=== PATIENT | male | born 1955 | race Caucasian/White ===

== ENCOUNTER → 2016-05-13 | Outpatient (CLI) | payer BC ==
[~2016-05-13] MED LIST: CLOP1TAB15 PO; LISI-729 PO; METO25TA3 PO
[2016-05-13 11:12] LABS: ALT/SGPT 28 U/L (12-78); AST/SGOT 13 U/L (15-37); BLOOD UREA NITROGEN 18 mg/dl (7-18); BUN/CREATININE RATIO 18.8 (10-20); CALCIUM 8.8 mg/dl (8.5-10.1); CARBON DIOXIDE 29 mmol/L (21-32); CHLORIDE 108 mmol/L (98-107); CREATININE 0.93 mg/dl (0.60-1.40); GLUCOSE 110 mg/dl (70-99); SODIUM 143 mmol/L (136-145)
[2016-05-13 11:14] LABS: ALB/GLOB RATIO 1.2 (0.9-2); ALKALINE PHOSPHATASE 89 U/L (45-117); CHOLESTEROL 110 mg/dl (0-200); CHOLESTEROL/HDL RATIO 2.6; HDL CHOLESTEROL 42 mg/dl; LDL CHOLESTEROL CALCULATED 41 mg/dl; TRIGLYCERIDES 136 mg/dl (0-150); VERY LOW DENSITY LIPOPROT CALC 27 mg/dl
[2016-05-13 11:18] LABS: ESTIMATED AVERAGE GLUCOSE 140 mg/dl; HA1C FLAG Normal (Normal)
== END | disposition home or self-care (01) ==
LOC: C.LABBC 08:40
PROVIDERS: ATTEND Internal Medicine
DX: E78.00 Pure hypercholesterolemia, unspecified (principal); E11.9 Type 2 diabetes mellitus without complications; M46.1 Sacroiliitis, not elsewhere classified

== ENCOUNTER → 2016-11-16 | Outpatient (CLI) | payer BC ==
[2016-11-16 11:26] LABS: ALT/SGPT 22 U/L (12-78); AST/SGOT 15 U/L (15-37); BLOOD UREA NITROGEN 13 mg/dl (7-18); BUN/CREATININE RATIO 15.1 (10-20); CALCIUM 8.7 mg/dl (8.5-10.1); CARBON DIOXIDE 26 mmol/L (21-32); CHLORIDE 110 mmol/L (98-107); CREATININE 0.83 mg/dl (0.60-1.40); GLUCOSE 114 mg/dl (70-99); POTASSIUM 4.2 mmol/L (3.5-5.1); SODIUM 141 mmol/L (136-145)
[2016-11-16 11:29] LABS: CHOLESTEROL 96 mg/dl (0-200); CHOLESTEROL/HDL RATIO 2.3; HDL CHOLESTEROL 41 mg/dl; LDL CHOLESTEROL CALCULATED 27 mg/dl; TRIGLYCERIDES 139 mg/dl (0-150); VERY LOW DENSITY LIPOPROT CALC 28 mg/dl
[2016-11-16 12:16] LABS: ESTIMATED AVERAGE GLUCOSE 137 mg/dl; HA1C FLAG Normal (Normal)
== END | disposition home or self-care (01) ==
LOC: C.LABBC 08:07
PROVIDERS: ATTEND Internal Medicine
DX: E11.9 Type 2 diabetes mellitus without complications (principal); E78.00 Pure hypercholesterolemia, unspecified

== ENCOUNTER → 2017-05-19 | Outpatient (CLI) | payer OTHER ==
[2017-05-19 11:11] LABS: HEMATOCRIT 41.7 % (42-52); MEAN CELL VOLUME 83.1 fL (80-100); MEAN CORPUSCULAR HEMOGLOBIN 27.9 pg (25-34); MEAN CORPUSCULAR HGB CONC 33.6 g/dl (32-36); MEAN PLATELET VOLUME 10.7 fL (7.4-10.4); PLATELET COUNT 202 K/uL (130-400); RED CELL DISTRIBUTION WIDTH SD 42.4 fL (36.4-46.3); WHITE BLOOD COUNT 8.58 K/uL (4.8-10.8)
[2017-05-19 11:29] LABS: ALT/SGPT 30 U/L (12-78); AST/SGOT 18 U/L (15-37); BLOOD UREA NITROGEN 14 mg/dl (7-18); CALCIUM 8.8 mg/dl (8.5-10.1); CARBON DIOXIDE 24 mmol/L (21-32); CREATININE 0.93 mg/dl (0.60-1.40); GLUCOSE 126 mg/dl (70-99); POTASSIUM 3.9 mmol/L (3.5-5.1); SODIUM 140 mmol/L (136-145)
[2017-05-19 11:33] LABS: CHOLESTEROL 121 mg/dl (0-200); LDL CHOLESTEROL CALCULATED 48 mg/dl
[2017-05-19 11:45] LABS: HEMOGLOBIN A1C 6.7 % (4.5-5.6)
== END | disposition home or self-care (01) ==
LOC: C.LABBC 08:11
PROVIDERS: ATTEND Internal Medicine
DX: E11.9 Type 2 diabetes mellitus without complications (principal); E78.00 Pure hypercholesterolemia, unspecified; I25.10 Atherosclerotic heart disease of native coronary artery without angina pectoris; Z12.5 Encounter for screening for malignant neoplasm of prostate

== ENCOUNTER 2023-09-25 09:09 | Observation (INO) ==
--- NOTE | 2023-07-27 10:20 | PAT Medication Instructions ---
Medication Instructions Date of Service July 27, 2023 Home Medications Medication Instructions Recorded atorvastatin 20 mg tablet 20 mg PO QPM #90 tabs 11/30/22 losartan 25 mg tablet 25 mg PO PM #90 tabs 11/30/22 metoprolol succinate 25 mg 25 mg PO QAM #90 tabs 11/30/22 tablet,extended release 24 hr metformin 500 mg tablet 500 mg PO BID #60 tabs 06/23/23 Medication List: aspirin 81 mg tablet,delayed release (Aspir-) 81 mg PO QPM atorvastatin 20 mg tablet 20 mg PO QPM losartan 25 mg tablet 25 mg PO PM metoprolol succinate 25 mg tablet,extended release 24 hr 25 mg PO QAM metformin 500 mg tablet 500 mg PO BID cholecalciferol (vitamin D3) 50 mcg (2,000 unit) tablet (Vitamin D3) 50 mcg PO QAM clopidogrel 75 mg tablet 75 mg PO QAM MEDICATION INSTRUCTIONS: ASK your prescriber and surgeon aspirin 81 mg tablet,delayed release (Aspir-) 81 mg PO QPM clopidogrel 75 mg tablet 75 mg PO QAM (for spinal anesthesia: will need to hold Plavix/clopidogrel for at least 7 days prior to surgery) DO NOT take the morning of surgery cholecalciferol (vitamin D3) 50 mcg (2,000 unit) tablet (Vitamin D3) 50 mcg PO QAM metformin 500 mg tablet 500 mg PO BID Take morning of surgery With a small sip of water, OTHERWISE NOTHING TO EAT OR DRINK AFTER MIDNIGHT: metoprolol succinate 25 mg tablet,extended release 24 hr 25 mg PO QAM Take evening before surgery atorvastatin 20 mg tablet 20 mg PO QPM losartan 25 mg tablet 25 mg PO PM metformin 500 mg tablet 500 mg PO BID Other Notes If you have any questions please call us at [phone] or [phone] or [phone] or [phone]
--- NOTE | 2023-08-07 14:10 | Anesthesiology Consultation ---
Date of Service August 07, 2023 Assessment & Plan (1) Encounter for pre-operative examination: - Check BSG AM DOS - Infectious disease screening: Per assessment on 08/07/23: No known recent infectious disease contacts or current infectious disease symptoms. - Clopidogrel instructions: Patient made aware that for neuraxial anesthesia, Clopidogrel needs to be held 7 days prior to surgery- okay per cardiology. - Cardiology visit (07/05/23): "Assessment: 1. Coronary artery disease. History of RCA and left circumflex stents. Continues to swim several times a week. Prolonged distance of up to 1 km each time. His exercise tolerance and stamina are stable. He denies any anginal or anginal equivalent type symptoms with his swimming activities.. Plan and recommendations: 1. Based on his excellent exercise tolerance and stamina he is an acceptable cardiac risk to undergo his planned orthopedic surgery this summer. 2. He can stop his clopidogrel 7-10 days prior to the surgery date. He should remain on aspirin therapy uninterrupted. 3. It was discussed with the patient that there is no absolute indication for remain on clopidogrel. However, following surgery he would prefer to go back on it as he is done very well since his stent procedures with the current medical regimen. He is having no bleeding complaints with the dual antiplatelet therapy. Most recent hemoglobin and platelet count were normal. 4. If blood pressure remains elevated losartan dose could be increased to 50 mg daily. 5. Add apolipoprotein B to next labs." Chart Review Chart Review: Acceptable Risk for Surgery and Patient seen in Pre Admission Testing Teaching & Discussion Pre-Anesthesia Teaching/Discussion Notes: Instructed NPO after midnight before surgery,except medications with 15 cc of water. Medication instructions provided according to the PAT guidelines. History Surgery Operation Date: 09/15/23 07:00 Proposed Procedures p Bilateral Total Knee Arthroplasty - Jak Herndon DO Height/Weight Height: 6 ft Weight: 80 kg Allergies Allergy/AdvReac Type Severity Reaction Status Date / Time lisinopril Allergy Severe Swelling Verified 07/21/23 10:19 of Lip/Tongue/Throat Medications Home Medications Medication Instructions Recorded Confirmed Last Taken aspirin 81 mg tablet,delayed 81 mg PO QPM 03/01/19 07/21/23 03/11/19 21:00 release (Aspir-) atorvastatin 20 mg tablet 20 mg PO QPM #90 tabs 11/30/22 07/21/23 Unknown losartan 25 mg tablet 25 mg PO PM #90 tabs 11/30/22 07/21/23 Unknown metoprolol succinate 25 mg 25 mg PO QAM #90 tabs 11/30/22 07/21/23 Unknown tablet,extended release 24 hr metformin 500 mg tablet 500 mg PO BID #60 tabs 06/23/23 07/21/23 Unknown cholecalciferol (vitamin D3) 50 50 mcg PO QAM 07/21/23 07/21/23 Unknown mcg (2,000 unit) tablet (Vitamin D3) clopidogrel 75 mg tablet 75 mg PO QAM 07/21/23 07/21/23 Unknown Past Medical History Medical History CAD (coronary artery disease) Stents x2 (2010) Follows with [facility] cardio Coronary arteriosclerosis Degenerative arthritis of knee, bilateral Diabetes mellitus, type 2 Dyslipidemia Hx of myocardial infarction 2010 Hypertension Exercise / Class Metabolic Activity II 4-5 Yardwork/Stairs/Walk up hill Past Family History Family History Father Heart disease Myocardial infarction Mother FHx: diabetes mellitus Stroke Sister Non-Hodgkin lymphoma Denies family history of Ovarian cancer Prostate cancer Breast cancer Lung cancer Colorectal cancer Past Surgical History Surgical History Hx of appendectomy Hx of cardiac cath 2011- stents x2 Status post insertion of drug-eluting stent into right coronary artery for coronary artery disease Past Anesthesia History No Hx of Anesthesia Complications and No Family Hx of Anesthesia Complications History of PONV No Hx of PONV and No Hx of Motion Sickness Social History Smoking Status: Never smoker Do You Dip or Chew Tobacco: No Hx Alcohol Use: Yes alcohol intake frequency: holidays/special occasions only (Very rare) Hx Substance Use: No substance use type: does not use Review of Systems Patient denies chest pain, shortness of breath, dyspnea on exertion, fever, chills, cough, wheezing. Physical Exam Vital Signs BP 146/68 P 51 TEMP 97.8 SP02 95%RA RESP 18 Physical Full cervical extension range of motion. Full TMJ range of motion. TMD 3.5 finger breaths Mallampati Score 1 Dentition: intact Lungs: clear throughout to auscultation Cardiac: regular rate and rhythm, no murmurs noted Spine: normal Carotid arteries: negative bruit Extremities: no LE edema Lab Results Anesthesia Preop Results Results Anesthesia Widget: WBC 7.85 K/ul (4.8-10.8) 08/07/23 Hgb 13.8 g/dl (14.0-18.0) L 08/07/23 Hct 43.0 % (42.0-52.0) 08/07/23 Plt 208 K/uL (130-400) 08/07/23 Na 139 mmol/L (136-145) 08/07/23 K 4.3 mmol/L (3.5-5.1) 08/07/23 Cl 104 mmol/L (98-107) 08/07/23 CO2 29 mmol/L (21-32) 08/07/23 BUN 14 mg/dl (6-23) 08/07/23 Creat 0.70 mg/dl (0.6-1.4) 08/07/23 Glucose Level 129 mg/dl (70-99(Fasting)) H 08/07/23 PT 11.0 Seconds (9.0-12.0) 08/07/23 PTT 24 Seconds (21-31) 08/07/23 INR 1.0 (0.9-1.1) 08/07/23 HA1c 7.1 % of total Hgb (<5.7) H 07/11/23 Blood Type B Positive 08/07/23 Antibody Screen NEGATIVE 08/07/23 Testing Electrocardiogram Date: 08/07/23 SB at 48bpm. "Otherwise normal ECG" NS TWA. Chest X-Ray Date: 08/07/23 FINDINGS: There is mild elevation of the left hemidiaphragm. Lungs are clear. There is no pneumothorax or pleural effusion. Cardiac size is normal. Mediastinal contours are normal. There is no evidence for pulmonary edema. IMPRESSION: No acute cardiopulmonary findings.
--- NOTE | 2023-09-14 07:29 | History & Physical Report ---
Date of Service September 14, 2023 Assessment & Plan (1) Degenerative arthritis of knee, bilateral: We will proceed with bilateral total knee arthroplasties. Postoperatively he will be started back on aspirin and Plavix for DVT prophylaxis and kept overnight in the hospital for postop medical management. He plans to use energy physical therapy upon discharge. History of Present Illness Chief Complaint: Osteoarthritis bilateral knees. Primary Care Provider: Lacho Sheldon MD Joe is a pleasant 68-year-old male who has been dealing with chronic worsening bilateral knee pain. He has been following up with my partner who has been giving him multiple injections of his knees. He has done cortisone injections as well as viscosupplementation. Unfortunately, those have not been successful. His knee pain is really affecting his quality of life. He has trouble walking long distances or going up and down stairs. X-rays and clinical examination been diagnostic for advanced osteoarthritis of both knees. After failing conservative treatment, he has elected proceed with bilateral knee replacement surgery. Allergies Allergy/AdvReac Type Severity Reaction Status Date / Time lisinopril Allergy Severe Swelling Verified 07/21/23 10:19 of Lip/Tongue/Throat Home Medications Medication Instructions Recorded Confirmed Type aspirin 81 mg tablet,delayed 81 mg PO QPM 03/01/19 07/21/23 History release (Aspir-) atorvastatin 20 mg tablet 20 mg PO QPM #90 tabs 11/30/22 07/21/23 Rx losartan 25 mg tablet 25 mg PO PM #90 tabs 11/30/22 07/21/23 Rx metoprolol succinate 25 mg 25 mg PO QAM #90 tabs 11/30/22 07/21/23 Rx tablet,extended release 24 hr metformin 500 mg tablet 500 mg PO BID #60 tabs 06/23/23 07/21/23 Rx cholecalciferol (vitamin D3) 50 50 mcg PO QAM 07/21/23 07/21/23 History mcg (2,000 unit) tablet (Vitamin D3) clopidogrel 75 mg tablet 75 mg PO QAM 07/21/23 07/21/23 History Past Med/Surg History Problem List Medical History CAD (coronary artery disease) Stents x2 (2010) Follows with [facility] Coronary arteriosclerosis Dyslipidemia Hypertension Degenerative arthritis of knee, bilateral Diabetes mellitus, type 2 Hx of myocardial infarction 2010 Surgical History Status post insertion of drug-eluting stent into right coronary artery for coronary artery disease Hx of appendectomy Hx of cardiac cath 2011- stents x2 Family History Father Heart disease Myocardial infarction Mother FHx: diabetes mellitus Stroke Sister Non-Hodgkin lymphoma Denies family history of Ovarian cancer Prostate cancer Breast cancer Lung cancer Colorectal cancer Social History Smoking Status: Never smoker Second Hand Exposure: No; Do You Dip or Chew Tobacco: No; Tobacco Cessation Education Requested by Patient: No Hx Alcohol Use: Yes Hx Substance Use: No Preferred Language: Mauritanian Communication Ability: Effective Visual Impairment: No Limitations Hearing Ability: Normal Medicine And Health Service Manager Required: No Beliefs That Will Affect Care: None marital status: Current Living Situation: Spouse current occupational status: employed 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 Physical Exam On physical examination of both knees, he has a slight varus deformity. He has tenderness palpation of the distal medial femoral condyles and over the medial joint lines.. Constitutional WD/WN, vitals as above Eyes PERRL, conjunctivae normal, anicteric sclerae ENMT external ear and nose normal, oropharynx normal Neck trachea midline, no thyromegaly Respiratory normal respiratory effort Cardiovascular RRR, no murmur, no edema Gastrointestinal (Abdomen) normal bowel sounds, soft, nontender, no hepatosplenomegaly Psychiatric A+Ox3, euthymic affect Results & Data Results & Data Laboratory Results . Diagnostic Findings X-rays of both knees do show medial compartmental arthritis with joint space narrowing, osteophyte formation, and [id number] articulation. PG Care Time/CCT Total # of Minutes Spent Total Time Spent with Patient: Total time spent is greater than 50% in coordination of care (as documented) at patient's floor/unit and/or counseling patient: Coding Level of Care Code None Diagnoses Degenerative arthritis of knee, bilateral M17.0
[~2023-09-25 09:09] MED LIST changes: +ACETAMINOPHEN 500 MG TAB PO SCH; +BUPIVACAINE 0.5 % 5 MG/1 ML PF 10ML VIAL ONE; -CLOP1TAB15 PO; +FAMOTIDINE 20 MG TAB PO SCH; +GABAPENTIN 300 MG CAP PO SCH; -LISI-729 PO; +LR 500ML BOLUS, THEN 15ML/HR IV SCH; +LR 60ML/HR IV SCH; -METO25TA3 PO; +ROPIV 0.5% 246mg, Ketorolac 30mg, EPINEPHrine 0.5mg in NSS INFIL SCH; +ROPIVACAINE 0.5% 5 MG/ML 30 ML VIAL ONE; +TRANEXAMIC ACID 1,000 MG **IV Intra-op IV SCH; +TRANEXAMIC ACID 1,000 MG **IV Pre-op IV SCH; +ceFAZolin 2000MG 2,000 MG/15 ML SYR IV SCH; +dexAMETHasone**PF** 10 MG/ML VIAL IV SCH
[2023-09-25] MEDS: dexAMETHasone**PF** 10 MG/ML VIAL IV SCH (09:32)
[2023-09-25] MEDS: LR 500ML BOLUS, THEN 15ML/HR IV SCH (09:32)
[2023-09-25] MEDS: LR 60ML/HR IV SCH (09:32)
[2023-09-25] MEDS: GABAPENTIN 300 MG CAP PO SCH (09:41)
[2023-09-25] MEDS: FAMOTIDINE 20 MG TAB PO SCH (09:41)
[2023-09-25] MEDS: ACETAMINOPHEN 500 MG TAB PO SCH ×2 (09:41→20:46)
[2023-09-25] MEDS ORDERED: MIDAZOLAM HCL 1 MG/ML 2ML VIAL ONE (09:58)
[2023-09-25] MEDS ORDERED: ONDANSETRON INJ 2 MG/ML 2 ML VIAL ONE (09:59)
[2023-09-25] MEDS ORDERED: PROPOFOL IV EMULSION 10 MG/ML 20 ML VIAL IV ONE ×2 (09:59→13:41)
[2023-09-25] MEDS ORDERED: fentaNYL citrate PF 100 MCG/2 ML VIAL ONE (09:59)
[2023-09-25] MEDS ORDERED: HYDROmorphone INJ 1 MG/ML SYRINGE IV PRN (11:16)
[2023-09-25] MEDS ORDERED: ePHEDrine sulfate 50 MG/ML AMP IV PRN (11:16)
[2023-09-25] MEDS ORDERED: ONDANSETRON INJ 2 MG/ML 2 ML VIAL IV PRN ×2 (11:16→15:47)
[2023-09-25] MEDS ORDERED: KETOROLAC 30 MG/ML VIAL IV PRN (11:16)
[2023-09-25] MEDS ORDERED: ATROPINE SULFATE 0.1 MG/ML 10ML SYR IV PRN (11:16)
--- OUTSIDE RECORDS SUMMARY | 2023-09-25 11:41 | External Medical Summary | Continuity of Care Document ---
Author Name Unknown Organization [facility] [address] [facility] [address] [place] [id number] Care Team Providers Care Stone Carver Name Role Phone Pro Lacho W Primary Care Physician [phone] Encounter [facility] [id number] Date(s): 08/18/23 - 08/18/23 [facility] [address] [facility] [place] [address] [facility] [address] [place] [address] [phone] Encounter Diagnosis Osteoarthritis of knees, bilateral(Discharge Diagnosis) - 08/18/23 Discharge Disposition: Home or Self Care Attending Physician: MD Steward Mark W Allergies, Adverse Reactions, Alerts No Known Allergies Assessment and Plan Extracted from: Title:Clinical Document Author:MD Steward Mark W Date:08/18/23 OUTPATIENT NOTE Name: MARY WALL Patient Number:[id number] : 1955 Date of Service: 08/18/2023 _ This patient comes today for evaluation of bilateral knee osteoarthritis. This been a problem for a couple years now and has been slowly progressively getting worse. He has had injections both steroid and viscosupplementation in the past initially got good relief out of those but more recently not so much. He is slowly getting to the point where it is limiting his ability to work. 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 He spent a fair bit of time thinking about this and feels like he is ready to move ahead with knee arthroplasties. On exam he is ambulating with a normal gait. He has full range of motion in both knees with only mild bilateral varus alignment. There is no instability is got joint line tenderness medially bilaterally with minimal effusion. Radiographs available for my interpretation today show advanced osteoarthritis in both knees. Assessment and plan: Status post bilateral total knee arthroplasties. He is failed nonsurgical treatment at this point. We discussed the risks and benefits of knee arthroplasty. He would like to do both knees at the same time. We discussed the pros and cons of that as well but I think he is otherwise a good candidate for that. Will get him on the schedule for bilateral knee arthroplasties and see him back at the time of surgery. Medications aspirin 81 mg oral tablet Start: 09/14/10 2:19:00 PM EDT, 1 tab, PO, Daily, tab Start Date: 09/14/10 Status: Ordered atorvastatin 20 mg oral tablet Start: 09/03/14 1:25:00 PM EDT, 1 tab, PO, Daily Start Date: 09/03/14 Status: Ordered Glucosamine Chondroitin MSM Complex Start: 09/14/10 2:20:00 PM EDT, PO, tid, tab Start Date: 09/14/10 Status: Ordered lisinopril 10 mg oral tablet Start: 08/20/13 1:06:00 PM EDT, 1 tab, PO, Daily Start Date: 08/20/13 Status: Ordered metFORMIN 500 mg oral tablet TAKE 1 TABLET BY MOUTH TWO TIMES DAILY WITH FOOD AT BREAKFAST AND DINNER Start Date: 08/18/23 Status: Ordered metoprolol tartrate 25 mg oral tablet Start: 09/14/10 2:19:00 PM EDT, 1 tab, PO, Daily Start Date: 09/14/10 Status: Ordered Plavix 75 mg oral tablet Start: 09/14/10 2:19:00 PM EDT, 1 tab, PO, ONCE Start Date: 09/14/10 Status: Ordered Mental Status 08/18/23 Barriers to Learning one year None evide nt Mandatory Health Literacy Documentation Yes Health Literacy Communication Barriers N ever Primary Language Moroccan Problem List Condition Confirmation Course Effective Dates Status H ealth Status Informant Chest pain Confirmed Active Heart disease Confirmed Active HTN - Hypertension Confirmed Active Hypercholesterolemia Confirmed Active Bilateral knee pain Confirmed Active KS Confirmed Active SI joint arthritis Confirmed Active Scalp lesion Confirmed Active Weight disorder Confirmed Active Diagnosis Diagnosis Type Effective Dates Health Status Clinical Service Informant Osteoarthritis of knees, bilateral Discharge Diagnosis 08/18/23 Procedures Procedure Date Related Diagnosis Body Site Status Appendectomy Completed Cardiac catheterization C ompleted Stent placement x 2 Compl eted Vital Signs Most recent to oldest [Reference Range]: 1 Height 186 cm (08/18/23 1:16 PM) Patient Weight 78.0 kg (08/18/23 1:16 PM) Body Mass Index 22.55 kg/m2 (08/18/23 1:16 PM) Social History Social History Type Response Smoking Status Never smoked cigaret elieser Sex Male Outpatient Note * MD Bin, Noble Lloyd: PERFORM Event Display: .Outpt Note Authored Date: [id number] OUTPATIENT NOTE Name: MARY WALL Patient Number:[id number] : 1955 Date of Service: 08/18/2023 _ This patient comes today for evaluation of bilateral knee osteoarthritis. This been a problem for acouple years now and has been slowly progressively getting worse. He has had injections both steroid and viscosupplementation in the past initially got good relief out of those but more recently not so much. He is slowly getting to the point where it is limiting his ability to work. 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 He spent a fair bit of time thinking about this and feels like he is ready to move ahead with knee arthroplasties. On exam he is ambulating with a normal gait. He has full range of motion in both knees with only mild bilateral varus alignment. There is no instability is got joint line tenderness medially bilaterally with minimal effusion. Radiographs available for my interpretation today show advanced osteoarthritis in both knees. Assessment and plan: Status post bilateral total knee arthroplasties. He is failed nonsurgical treatment at this point. We discussed the risks and benefits of knee arthroplasty. He would like to do both knees at the same time. We discussed the pros and cons of that as well but I think he is otherwise a good candidate for that. Will get him on the schedule for bilateral knee arthroplasties and seehim back at the time of surgery. Electronic Signature on File Electronically Reviewed/Signed by: Noble Steward MD Author Signature Dt/Tm:08/18/2023 01:51 PM Division of Orthopaedics [facility] Patient Care team information Care Team Personnel Name: MD Sheldon Jeffrey W Position: Referring DIRECT Member Role: Primary Care Provider Address: Address: [facility] [address] Care Team Related Persons Name: XIN WALL Address: [place] [address] [facility] [place] [phone]
[2023-09-25] MEDS: TRANEXAMIC ACID 1,000 MG **IV Pre-op IV SCH (12:01)
--- NOTE | 2023-09-25 12:08 | History & Physical Bridge Note ---
Date of Service September 25, 2023 History & Physical Bridge Note I have examined the patient, reviewed the History & Physical and in the interval since the performance of the History & Physical I have noted the following changes of clinical significance: no changes noted
[2023-09-25] MEDS: ceFAZolin 2000MG 2,000 MG/15 ML SYR IV SCH ×2 (12:15→20:45)
[2023-09-25] MEDS: ROPIV 0.5% 246mg, Ketorolac 30mg, EPINEPHrine 0.5mg in NSS INFIL SCH (13:04)
[2023-09-25] MEDS: ORTHO JOINT ANESTHETIC ONE (13:05)
[2023-09-25] MEDS ORDERED: PHENYLEPHRINE 100MCG/ML 10ML SYR IV ONE (13:41)
[2023-09-25] MEDS ORDERED: ePHEDrine sulfate 50 MG/5 ML SYR ONE (13:41)
[2023-09-25] MEDS: TRANEXAMIC ACID 1,000 MG **IV Intra-op IV SCH (14:06)
--- NOTE | 2023-09-25 14:22 | Operative Report ---
PG Post Operative Report Pre & Post Diagnosis Operation Date: 09/25/23 11:00 Pre-Op Diagnosis: Degenerative Joint Disease Bilateral Knees Post-Op Diagnosis: Degenerative Joint Disease Bilateral Knees I identified the patient and participated in the time-out.: Yes Procedure Operation Date: 09/25/23 11:00 Actual Procedures p Bilateral Total Knee Arthroplasty(Bilateral) - Jak Herndon DO Surgeon Jak Herndon DO Lighter Captain Jak Floyd PA-C Estimated Blood Loss 60 Findings Consistent with Post-Op Diagnosis Specimens Bilateral femoral and tibial bone Description of Procedure Joe arrived [facility] for the above procedure. He was seen in the preoperative holding area and both knees were identified and signed. He was given a preoperative antibiotic, TXA, a spinal anesthetic and adductor nerve blocks. He was taken back to the operating room and laid on the table in supine position. He was given basic sedation. Both knees were then prepped and draped in sterile fashion. A timeout was done, and the patient and the operative extremities were properly identified. Right knee implants used: I used a Maikol Persona total knee arthroplasty system with a size 10 standard PS femur, F tibia, 34 oval patella, and a size 12 CPS polyethylene bearing. All components were cemented in place with Palacos G cement. A midline incision was made directly over the patella. Dissection was taken down to the extensor mechanism. A subvastus arthrotomy was used. The medial retinaculum was released and the fat pad was mostly excised. The knee was flexed and the ACL, PCL, and meniscus were removed. A drill was sent down the center of the femoral canal followed by an intramedullary zamzam. Off that zamzam a distal femoral cutting block was placed. 9 mm was resected off the distal femur at 5 of valgus. A posterior referencing AP sizing guide was then placed on the distal femur. The femur measured to be a size 10. 2 drill holes were placed in 3 of external rotation. A 4-in-1 cutting block was then impacted into place. Anterior, posterior, and chamfer cuts were then made. The proximal tibia was then exposed. An external tibial alignment guide was placed. A tibial cut guide was then anchored in place and the proximal tibia was then resected. The posterior aspect of the knee was then opened up and any additional meniscus fragments and osteophytes were removed. The tibia measured to be a size F. The tibial plate was then placed in the appropriate rotation and the tibia was drilled and punched. Trial components were then placed. I used a size 12 CPS polyethylene insert. The knee was brought through a full range of motion and felt to be stable. The peg holes for the femur were then drilled. The patella was then everted and 9 mm was resected off the posterior aspect of the patella. The patella measured to be a size 34 oval. 3 peg holes were then drilled. A trial patella was placed. The knee was once again brought through a full range of motion and felt to be stable. Trial components were then removed. The surrounding soft tissues were injected with 50 cc of an orthopedic pain control cocktail. All components were then cemented into place with Palacos G cement. The final polyethylene insert was then snapped into place. Once cement was dry the tourniquet was deflated. Hemostasis was obtained. A dilute betadyne lavage was then done for 3 minutes. The joint was then irrigated with normal saline solution. The subvastus arthrotomy was then closed with #1 Vicryl suture. The skin was closed with 2-0 Vicryl, 3-0V lock suture, and anibal. A Silverlon and a soft compressive dressing were placed. Left knee implants used: I used a Maikol Persona total knee arthroplasty system with a size 10 standard PS femur, F tibia, 34 oval patella, and a size 12 CPS polyethylene bearing. All components were cemented in place with Palacos G cement. A midline incision was made directly over the patella. Dissection was taken down to the extensor mechanism. A subvastus arthrotomy was used. The medial retinaculum was released and the fat pad was mostly excised. The knee was flexed and the ACL, PCL, and meniscus were removed. A drill was sent down the center of the femoral canal followed by an intramedullary zamzam. Off that zamzam a distal femoral cutting block was placed. 9 mm was resected off the distal femur at 5 of valgus. A posterior referencing AP sizing guide was then placed on the distal femur. The femur measured to be a size 10. 2 drill holes were placed in 3 of external rotation. A 4-in-1 cutting block was then impacted into place. Anterior, posterior, and chamfer cuts were then made. The proximal tibia was then exposed. An external tibial alignment guide was placed. A tibial cut guide was then anchored in place and the proximal tibia was then resected. The posterior aspect of the knee was then opened up and any additional meniscus fragments and osteophytes were removed. The tibia measured to be a size F. The tibial plate was then placed in the appropriate rotation and the tibia was drilled and punched. Trial components were then placed. I used a size 12 CPS polyethylene insert. The knee was brought through a full range of motion and felt to be stable. The peg holes for the femur were then drilled. The patella was then everted and 9 mm was resected off the posterior aspect of the patella. The patella measured to be a size 34 oval. 3 peg holes were then drilled. A trial patella was placed. The knee was once again brought through a full range of motion and felt to be stable. Trial components were then removed. The surrounding soft tissues were injected with 50 cc of an orthopedic pain control cocktail. All components were then cemented into place with Palacos G cement. The final polyethylene insert was then snapped into place. Once cement was dry the tourniquet was deflated. Hemostasis was obtained. A dilute betadyne lavage was then done for 3 minutes. The joint was then irrigated with normal saline solution. The subvastus arthrotomy was then closed with #1 Vicryl suture. The skin was closed with 2-0 Vicryl, 3-0V lock suture, and anibal. A Silverlon and a soft compressive dressing were placed. He was then transferred to a hospital bed and taken to the postanesthesia care unit in stable condition. He tolerated the procedure well. Jak Floyd PA-C, was present for the entire procedure. He was critical for patient positioning, prepping, draping, retraction exposure, wound closure and application of sterile dressing. I attest to the content of the Intraoperative Record and any orders documented therein. Any exceptions are noted below.
--- NOTE | 2023-09-25 15:09 | Anesthesiology Progress Note ---
Date of Service September 25, 2023 Anesthesia Post Procedure Vital Signs Vital Signs: Temp Pulse Pulse Resp BP Pulse Ox O2 Del Method 09/25/23 15:00 50 L 19 124/75 100 Oxymask 09/25/23 14:50 63 15 120/71 97 Oxymask 09/25/23 14:40 57 L 14 126/79 98 Oxymask 09/25/23 14:33 96.8 F L 56 L 12 127/83 92 Oxymask 09/25/23 09:33 98.2 F 48 L 48 H 162/91 H 99 Room Air O2 Flow Rate 09/25/23 15:00 4 09/25/23 14:50 4 09/25/23 14:40 4 09/25/23 14:33 4 09/25/23 09:33 Pain Intensity Bilateral Knee: Pain Intensity: 4 Transfer of Care Handoff Completed per policy Notes Mental Status: alert / awake / arousable and participated in evaluation Patient Amnestic to Procedure: Yes Nausea / Vomiting: adequately controlled Pain: adequately controlled Airway Patency, RR, SpO2: stable & adequate BP & HR: stable & adequate Hydration State: stable & adequate Anesthetic Complications: no major complications apparent and Pt Satisfied with anesthetic care
--- NOTE | 2023-09-25 15:44 | XRay Report ---
XR knee LT 1 or 2V routine, XR knee RT 1 or 2V routine CLINICAL HISTORY: Surgical Post Op TECHNIQUE: 2 views of the bilateral knees were obtained. Comparison: Comparison is made to knee radiographs 02/28/2023 FINDINGS: Patient is status post total knee arthroplasty with expected postsurgical changes including soft tiss ue swelling and subcutaneous emphysema. No periarticular lucency or hardware fracture is seen. IMPRESSION: Expected postoperative appearance status post placement of total knee arthroplasty. ACT 112: Negative or not required by law. Electronically signed by: Jona Moffett M.D. 09/25/2023 3:43 PM
[2023-09-25] MEDS ORDERED: NALOXONE HCL 0.4 MG/1 ML VIAL/CARP IV PRN (15:47)
[2023-09-25] MEDS ORDERED: bisacodyL 10 MG SUPP PR PRN (15:47)
[2023-09-25] MEDS ORDERED: MAGNESIUM HYDROXIDE SUSP 30 ML UDC PO PRN (15:47)
[2023-09-25] MEDS ORDERED: METOCLOPRAMIDE HCL INJ 5 MG/ML 2 ML VIAL IV PRN (15:47)
[2023-09-25] MEDS ORDERED: HYDROmorphone INJ 0.5 MG/0.5 ML SYR IV PRN (15:47)
[2023-09-25] MEDS: KETOROLAC TROMETHAMINE 15 MG/ML VIAL IV SCH (16:00)
[2023-09-25] MEDS: SODIUM CHLORIDE 0.9% 1,000 ML IV SCH (16:00)
[2023-09-25] MEDS: DOCUSATE SODIUM 100 MG CAP PO SCH (20:45)
[2023-09-25] MEDS: ASPIRIN 81 MG ECTAB PO SCH (20:46)
[2023-09-25] MEDS: LOSARTAN POTASSIUM 25 MG TAB PO SCH (20:46)
[2023-09-25] MEDS: ATORVASTATIN 20 MG TAB PO SCH (20:46)
[2023-09-25] MEDS: SENNA 8.6 MG TAB PO SCH (20:47)
[2023-09-26] MEDS: oxyCODONE HCL IR 5 MG TAB (IMMEDIATE RELEASE) PO PRN (00:04)
--- NOTE | 2023-09-26 06:52 | Orthopedic Progress Note ---
Date of Service September 26, 2023 Assessment & Plan (1) Status post bilateral knee replacements: Overall he is doing very well. Is not having much pain in his knees. He will be seen by physical therapy today for ambulation and range of motion exercises. His dressings can be changed after physical therapy. He is on aspirin and Plavix for DVT prophylaxis. He can be discharged home later today. He will follow-up with orthopedics in 2 weeks. Laura Diaz was seen and examined at bedside this morning. Overall he is doing very well. He is not having much pain in either knee. He has ice packs on both knees. He has been up and ambulating to the bathroom. He has no complaints.. Review of Systems All systems reviewed & are unremarkable except as noted in HPI & below. Physical Exam Physical examination of both knees showed the dressings are clean and dry. His legs are out full extension. He has active dorsiflexion plantarflexion of both ankles.. Results & Data Results & Data Laboratory Results . Diagnostic Findings Postoperative x-rays of both knees show the prosthesis to be in anatomic alignment without any evidence of fracture complication, or loosening.. PG Care Time/CCT Total # of Minutes Spent Total Time Spent with Patient: Total time spent is greater than 50% in coordination of care (as documented) at patient's floor/unit and/or counseling patient: Coding Level of Care Code 60236 Post Operative Follow-Up Diagnoses Status post bilateral knee replacements Z96.653
--- NOTE | 2023-09-26 06:53 | Discharge Summary ---
Date of Service September 26, 2023 Admission HPI (Per Admitting) Joe is a pleasant 68-year-old male who has been dealing with chronic worsening bilateral knee pain. He has been following up with my partner who has been giving him multiple injections of his knees. He has done cortisone injections as well as viscosupplementation. Unfortunately, those have not been successful. His knee pain is really affecting his quality of life. He has trouble walking long distances or going up and down stairs. X-rays and clinical examination been diagnostic for advanced osteoarthritis of both knees. After failing conservative treatment, he has elected proceed with bilateral knee replacement surgery. Admission Exam (Per Admitting) On physical examination of both knees, he has a slight varus deformity. He has tenderness palpation of the distal medial femoral condyles and over the medial joint lines.. Principal Diagnosis Same as "Discharge Diagnosis" noted below under Discharge Instructions. Discharge Exam Physical examination of both knees showed the dressings are clean and dry. His legs are out full extension. He has active dorsiflexion plantarflexion of both ankles.. Discharge Data Procedures Performed Operation Date: 09/25/23 11:00 Actual Procedures p Bilateral Total Knee Arthroplasty(Bilateral) - Jak Herndon DO Ordered Studies 09/25/23 05:00 US - OR guided needle placemen Routine Hospital Course (1) Status post bilateral knee replacements: On September 25, 2023 Joe arrived at [facility] and underwent bilateral knee replacements without complication. He had a spinal anesthetic. Postoperatively he was started back on aspirin and Plavix for DVT prophylaxis and transferred to the general orthopedic floors. His hospital course was uneventful. On postop day #1, his vital signs were stable and his pain was well-controlled. He was able to participate well with physical therapy doing ambulation and range of motion exercises. He was then discharged home. He will follow-up with orthopedics in 2 weeks. PG Care Time/CCT Total # of Minutes Spent Total Time Spent with Patient: Total time spent is greater than 50% in coordination of care (as documented) at patient's floor/unit and/or counseling patient: Discharge Plan Discharge Items Patient Disposition: Home - Self-Care Reason For Visit: Degenerative Joint Disease Bilateral Knees Discharge Diagnosis: Bilateral knee replacements Activity: Per Instructions section Non-emergency contact: Surgeon Call non-emergency contact if: your wound has increased redness and your wound has increased drainage Follow-up/Referrals: Pro,Lacho Ellington MD [Primary Care Provider] - Diet: Regular Addtl Attending Provider Instructions: Activity and Therapy Recommendations: * If you are using [facility] then therapy will be provided at your home until they feel you have accomplished all of your goals. * If you are using [facility] then Physical Therapy will be provided until they feel you are ready to start Outpatient Physical Therapy. * If you are not using home therapy then Outpatient Physical Therapy should start about 3-5 days from your day of surgery. Therapy will last about 6-10 weeks * It is important not to put a pillow under your knee when you are relaxing or sleeping. It is just as important to make sure you are getting your knee perfectly straight as it is to regain your knee bend. * You were shown a series of exercises in the hospital. Do these exercises three times each day including the exercises you were shown in physical therapy. * Get up and walk several times each day. For the first four weeks, try not to stand or walk for more than one hour at a time. If you do stand or walk for more than one hour, you will not hurt anything, but your leg will likely swell. * As you feel comfortable, you may change from the walker or crutches to a cane and then to independent walking. Medications: * Narcotic You will likely be sent home from the hospital with a prescription for the narcotic pain medication that worked best throughout your stay. * Cefadroxil -take the antibiotic twice a day for 10 days to help prevent infection. * Aspirin- take the aspirin 81 mg twice a day for 6 weeks after surgery. You may continue taking your Plavix as well. * Other medications may be prescribed for specific circumstances. If you have any questions, please call the office at . * Resume previous home medications unless otherwise instructed TEDs/Elastic Stockings: The white elastic stockings help limit swelling and prevent blood clots from forming in your legs.~ The more you wear them, the more they work. Wear them for six weeks. Dressing Care: The dressing can be changed after physical therapy on postop day #1. Daily dry dressing changes for a few days, especially if the incision is still draining some. If the incision is not draining then you may leave the anibal open to air. If there is a little bit of drainage or if the anibal are getting stuck on your clothing then cover the incision with a dry dressing. The anibal will be removed at your 2 week follow-up appointment. Showering: You may shower 5 days from the day of surgery as long as the incision is no longer draining. You may shower with the anibal exposed. Let soapy water run over the anibal and pat them dry. Do not scrub or soak the incision. Things To Watch For: * Drainage from the incision site that occurs more than one week after your surgery. * Increased redness at the incision site. * Fever above 102 degrees Fahrenheit. * Unusual chest pain or shortness of breath. * Call [facility] at with any of the above problems Follow-Up Visit: Follow-up with Dr. Herndon's PA (Jak Floyd) 2-3 weeks after your day of surgery. He will remove your anibal and answer any questions. If you have any additional questions or concerns, Dr Herndon is usually in the office at the same time and will be available An appointment was probably scheduled when you signed-up for surgery in the office. If you have any questions call Office Instructions: More detailed instructions as well as Frequently Asked Questions were provided in a folder by our office when you signed-up for surgery. Please review these instructions when you get home. If you have any further questions or concerns, please feel free to call the office at [phone] Pending Studies at Discharge: No Stand-Alone Forms: My [facility] Medications and DC Order Prescriptions: New oxycodone 5 mg Tablet 5 mg PO Q4H PRN (Reason: pain) Qty: 30 0RF cefadroxil 500 mg capsule 500 mg PO BID 10 Days Qty: 20 0RF aspirin 81 mg Tablet,Delayed Release (Dr/Ec) 81 mg PO BID 42 Days Qty: 0 0RF Continued atorvastatin 20 mg tablet 20 mg PO QPM Qty: 90 3RF losartan 25 mg tablet 25 mg PO PM Qty: 90 3RF metoprolol succinate 25 mg tablet extended release 24 hr 25 mg PO QAM Qty: 90 3RF metformin 500 mg tablet 500 mg PO BID Qty: 60 2RF Rx Instructions: with food breakfast and dinner clopidogrel [Plavix] 75 mg tablet 75 mg PO QAM cholecalciferol (vitamin D3) [Vitamin D3] 50 mcg (2,000 unit) Tablet 50 mcg PO QAM Held aspirin [Aspir-81] 81 mg tablet,delayed release (DR/EC) 81 mg PO QPM Hold Instructions: Resume on 11/07/23. Discharge Orders: Discharge Order (Routine); Ordered 09/26/23 Ordered By: Jak Herndon Admission Data Admit Date/Time: 09/25/23 14:34 Attending Provider: Jak Herndon Admit Provider: Jak Herndon Primary Care Provider: Lacho Sheldon
[2023-09-26] MEDS: MULTIVITAMIN TAB PO SCH (07:16)
[2023-09-26] MEDS: CLOPIDOGREL BISULFATE 75 MG TAB PO SCH (07:16)
[2023-09-26] MEDS: METOPROLOL SUCC 25MG EXT REL TAB PO SCH (07:16)
== END 2023-09-26 11:35 | disposition home or self-care (01) ==
LOC: 3E 09:09 → ASU 09:09